=== PATIENT | female | born 2005 | race Caucasian/White ===

== ENCOUNTER 2024-12-03 13:45 | Outpatient (RCR) | payer BC, SELFPAY | END 2024-12-04 16:18 | disposition home or self-care (01) | PROVIDERS: PCP Pediatrics; Visit Provider Pediatrics | DX: R51.9 Headache, unspecified (principal); M50.31 Other cervical disc degeneration, high cervical region; R29.3 Abnormal posture; Z51.89 Encounter for other specified aftercare | CPT/HCPCS: 97110; 97112; 97140; 97161 ==